=== PATIENT | female | born 1950 | race Caucasian/White ===

== ENCOUNTER 2025-06-28 17:41 | Emergency (ER) | payer OTHER | END 2025-06-29 00:05 | LOC: MADERS 17:41 | DX: M25.551 Pain in right hip (principal); W17.89XA Other fall from one level to another, initial encounter; I25.10 Atherosclerotic heart disease of native coronary artery without angina pectoris; J44.9 Chronic obstructive pulmonary disease, unspecified; E78.5 Hyperlipidemia, unspecified; I10 Essential (primary) hypertension; E11.9 Type 2 diabetes mellitus without complications; Z79.82 Long term (current) use of aspirin; Z79.899 Other long term (current) drug therapy; Z79.84 Long term (current) use of oral hypoglycemic drugs; S00.93XA Contusion of unspecified part of head, initial encounter; W05.0XXA Fall from non-moving wheelchair, initial encounter; Y92.091 Bathroom in other non-institutional residence as the place of occurrence of the external cause | CPT/HCPCS: 70450; 72125; 72131; 72192 ==

== ENCOUNTER 2025-07-08 10:23 | Emergency (ER) | payer OTHER ==
[2025-07-08 11:02] LABS: Hematocrit 40.6 % (36.0-47.0); Hemoglobin 12.0 g/dL (12.0-16.0); Mean Corpuscular Hemoglobin 23.4 pg (27.0-31.0); Mean Corpuscular Volume 79.2 fl (78.0-98.0); Platelet Count 272 10x3/uL (130-400); Red Blood Cell (RBC) Count 5.12 mill/uL (4.20-5.40); White Blood Cell (WBC) Count 4.6 10x3/uL (4.8-10.8)
[2025-07-08 11:08] LABS: Anisocytosis SLIGHT = 6-15 cells (100X) (0-5/hpf); MDiff Complete? YES; Platelet Adequacy Comment Appears Adequate
[2025-07-08 11:11] LABS: ALT (SGPT) 10 U/L (Less than 34); AST (SGOT) 19 U/L (11-34); Albumin 3.8 g/dL (3.1-4.5); Alkaline Phosphatase 120 U/L (40-110); Anion Gap 18 mmol/L (10-20); BUN (Urea Nitrogen) 13 mg/dL (9.8-20.1); Bilirubin, Total 0.3 mg/dL (0.3-1.2); Calc. Creatinine Clearance 0 mL/min (70-130); Calcium 8.8 mg/dL (7.8-10.44); Carbon Dioxide 22 mmol/L (23-31); Chloride 103 mmol/L (98-107); Globulin 3.2 g/dL (2.4-3.5); Glucose 182 mg/dL (83-110); Potassium 5.0 mmol/L (3.5-5.1); Sodium 138 mmol/L (136-145)
[2025-07-08 11:14] LABS: Troponin I Less than 0.010 ng/mL (< 0.028)
[2025-07-08 11:49] LABS: Glucose, Urine (Dipstick) Negative (Negative); Leukocyte Trace (Negative); Protein, Urine (Dipstick) Negative (Neg-Trace); Specific Gravity, Urine 1.015 (1.005-1.030)
[2025-07-08 12:23] LABS: Bacteria/HPF Rare-Few HPF (None Seen); CAUTI Indications for Culture Alt mental st,lethar; RBC/HPF 0-3 HPF (0-3)
[2025-07-08 12:24] LABS: Urine Culture Reflex No No
== END 2025-07-08 12:52 ==
LOC: MADERS 10:23
DX: Z71.1 Person with feared health complaint in whom no diagnosis is made (principal); R41.82 Altered mental status, unspecified; K21.9 Gastro-esophageal reflux disease without esophagitis; J44.9 Chronic obstructive pulmonary disease, unspecified; I25.10 Atherosclerotic heart disease of native coronary artery without angina pectoris; E78.5 Hyperlipidemia, unspecified; I10 Essential (primary) hypertension; E11.9 Type 2 diabetes mellitus without complications; Z79.82 Long term (current) use of aspirin; Z79.51 Long term (current) use of inhaled steroids; Z79.84 Long term (current) use of oral hypoglycemic drugs
CPT/HCPCS: 51701; 70450; 80053; 81001; 84484; 85025; 93005; J7030

== ENCOUNTER 2025-07-08 14:30 | Emergency (ER) | payer OTHER ==
[2025-07-08] MEDS ORDERED: Acetaminophen 500 MG TAB ONE (14:40)
== END 2025-07-08 16:18 ==
LOC: MADERS 14:30
DX: S73.102A Unspecified sprain of left hip, initial encounter (principal); J44.9 Chronic obstructive pulmonary disease, unspecified; I25.10 Atherosclerotic heart disease of native coronary artery without angina pectoris; E11.9 Type 2 diabetes mellitus without complications; I10 Essential (primary) hypertension; W06.XXXA Fall from bed, initial encounter; Z79.84 Long term (current) use of oral hypoglycemic drugs; Z79.82 Long term (current) use of aspirin; Z79.899 Other long term (current) drug therapy
CPT/HCPCS: 72192

== ENCOUNTER 2025-08-21 10:01 | Emergency (ER) | payer OTHER ==
[2025-08-21] MEDS ORDERED: Azithromycin 500 MG VIAL ONE (10:44)
[2025-08-21] MEDS ORDERED: cefTRIAXone (ROCEPHIN) 2 GM VIAL ONE (10:44)
[2025-08-21 11:01] LABS: #Basophils 0.1 thou/uL (0.0-0.2); #Eosinophils 0.1 thou/uL (0.0-0.7); #Lymphocytes 1.6 thou/uL (1.20-3.40); #Monocytes 0.5 thou/uL (0.11-0.59); #Neutrophils 5.6 thou/uL (1.40-6.50); %Basophils 0.8 % (0.0-1.0); %Eosinophils 0.9 % (0.0-10.0); %Lymphocytes 20.8 % (21.0-51.0); %Monocytes 6.3 % (0.0-10.0); %Neutrophils 71.2 % (42.0-75.0); Hematocrit 40.7 % (36.0-47.0); Hemoglobin 12.0 g/dL (12.0-16.0); Mean Corpuscular Hemoglobin 24.4 pg (27.0-31.0); Mean Corpuscular Volume 82.6 fl (78.0-98.0); Platelet Count 306 10x3/uL (130-400); Red Blood Cell (RBC) Count 4.97 mill/uL (4.20-5.40); White Blood Cell (WBC) Count 7.9 10x3/uL (4.8-10.8)
[2025-08-21 11:11] LABS: ALT (SGPT) 9 U/L (Less than 34); AST (SGOT) 12 U/L (11-34); Albumin 4.0 g/dL (3.1-4.5); Alkaline Phosphatase 122 U/L (40-110); Anion Gap 19 mmol/L (10-20); BUN (Urea Nitrogen) 13 mg/dL (9.8-20.1); Bilirubin, Total 0.3 mg/dL (0.3-1.2); Calc. Creatinine Clearance 0 mL/min (70-130); Calcium 9.1 mg/dL (7.8-10.44); Carbon Dioxide 23 mmol/L (23-31); Chloride 98 mmol/L (98-107); Globulin 3.5 g/dL (2.4-3.5); Glucose 193 mg/dL (83-110); Lipase 11 U/L (8-78); Potassium 4.5 mmol/L (3.5-5.1); Sodium 135 mmol/L (136-145); Troponin I Less than 0.010 ng/mL (< 0.028)
[2025-08-21] MEDS ORDERED: Benzonatate 100 MG CAP ONE (11:48)
== END 2025-08-21 14:15 | disposition home or self-care (01) ==
LOC: MADERS 10:01
DX: J44.1 Chronic obstructive pulmonary disease with (acute) exacerbation (principal); R07.2 Precordial pain; I11.9 Hypertensive heart disease without heart failure; E11.9 Type 2 diabetes mellitus without complications; F17.290 Nicotine dependence, other tobacco product, uncomplicated; Z79.82 Long term (current) use of aspirin; Z79.84 Long term (current) use of oral hypoglycemic drugs; Z79.899 Other long term (current) drug therapy
CPT/HCPCS: 36415; 71045; 71260; 80053; 83690; 83880; 84484; 85025; 87040; 93005; 94760; 96365; 96367; 96375; J0456; J0696; J2919; J7050

== ENCOUNTER 2025-09-04 23:36 | Emergency (ER) | payer OTHER ==
[2025-09-05 00:11] LABS: #Basophils 0.1 thou/uL (0.0-0.2); #Eosinophils 0.1 thou/uL (0.0-0.7); #Lymphocytes 2.5 thou/uL (1.20-3.40); #Monocytes 0.6 thou/uL (0.11-0.59); #Neutrophils 7.1 thou/uL (1.40-6.50); %Basophils 0.7 % (0.0-1.0); %Eosinophils 0.9 % (0.0-10.0); %Lymphocytes 24.1 % (21.0-51.0); %Monocytes 5.5 % (0.0-10.0); %Neutrophils 68.8 % (42.0-75.0); Hematocrit 32.5 % (36.0-47.0); Hemoglobin 9.9 g/dL (12.0-16.0); Mean Corpuscular Hemoglobin 25.0 pg (27.0-31.0); Mean Corpuscular Volume 81.8 fl (78.0-98.0); Platelet Count 238 10x3/uL (130-400); Red Blood Cell (RBC) Count 3.97 mill/uL (4.20-5.40); White Blood Cell (WBC) Count 10.3 10x3/uL (4.8-10.8)
[2025-09-05 00:24] LABS: ALT (SGPT) 8 U/L (Less than 34); AST (SGOT) 11 U/L (11-34); Albumin 3.0 g/dL (3.1-4.5); Alkaline Phosphatase 78 U/L (40-110); Anion Gap 14 mmol/L (10-20); BUN (Urea Nitrogen) 23 mg/dL (9.8-20.1); Bilirubin, Total 0.2 mg/dL (0.3-1.2); Calc. Creatinine Clearance 0 mL/min (70-130); Calcium 7.9 mg/dL (7.8-10.44); Carbon Dioxide 22 mmol/L (23-31); Chloride 105 mmol/L (98-107); Globulin 2.3 g/dL (2.4-3.5); Glucose 292 mg/dL (83-110); Potassium 3.3 mmol/L (3.5-5.1); Sodium 138 mmol/L (136-145)
[2025-09-05 00:25] LABS: Troponin I 0.030 ng/mL (< 0.028)
[2025-09-05] MEDS ORDERED: Aspirin Chewable 81 MG TAB ONE (03:44)
[2025-09-05 03:53] LABS: Troponin I 0.048 ng/mL (< 0.028)
[2025-09-05 03:56] LABS: Anion Gap 16 mmol/L (10-20); BUN (Urea Nitrogen) 22 mg/dL (9.8-20.1); Calc. Creatinine Clearance 0 mL/min (70-130); Carbon Dioxide 21 mmol/L (23-31); Chloride 104 mmol/L (98-107); Potassium 3.8 mmol/L (3.5-5.1); Sodium 137 mmol/L (136-145)
[2025-09-05 03:57] LABS: Calcium 8.1 mg/dL (7.6-10.4); Glucose 230 mg/dL (83-110); Magnesium 1.6 mg/dL (1.6-2.6)
[2025-09-05] MEDS ORDERED: Enoxaparin 60 MG (0.6 mL) SYRINGE ONE (04:42)
== END 2025-09-05 05:26 | disposition short-term general hospital (02) ==
LOC: MADERS 23:36
DX: I24.9 Acute ischemic heart disease, unspecified (principal); R00.1 Bradycardia, unspecified; K21.9 Gastro-esophageal reflux disease without esophagitis; J44.9 Chronic obstructive pulmonary disease, unspecified; I25.10 Atherosclerotic heart disease of native coronary artery without angina pectoris; E78.5 Hyperlipidemia, unspecified; E11.9 Type 2 diabetes mellitus without complications; G47.00 Insomnia, unspecified; F17.290 Nicotine dependence, other tobacco product, uncomplicated; F17.210 Nicotine dependence, cigarettes, uncomplicated; Z79.82 Long term (current) use of aspirin; Z79.84 Long term (current) use of oral hypoglycemic drugs; Z79.899 Other long term (current) drug therapy
CPT/HCPCS: 71045; 80048; 80053; 83735; 83880; 84484 ×2; 85025; J1650; 36415; 96372; 99285